=== PATIENT | male | born 1985 | race Caucasian/White ===

== ENCOUNTER 2019-04-23 20:36 | Emergency (ER) | payer BC ==
[~2019-04-23] VITALS: Ht 170.2 cm; Wt 75.0 kg
[2019-04-23 21:49] VITALS: Ht 170.2 cm; Wt 75.0 kg
[2019-04-23] MEDS ORDERED: PROVIGIL100 MG PO (21:50)
[2019-04-23] MEDS ORDERED: TRUVADA 200 MG1 EACH PO (22:04)
[2019-04-23] MEDS ORDERED: ISENTRESS400 MG PO (22:04)
[2019-04-23 22:31] VITALS: BP 145/84
== END 2019-04-23 22:33 | disposition home or self-care (01) ==
LOC: D.ER 20:36
DX: Z77.21 Contact with and (suspected) exposure to potentially hazardous body fluids (principal)